=== PATIENT | female | born 1980 | race Hispanic/Latino ===

== ENCOUNTER 2019-10-06 07:08 | Day surgery (SDC) | payer MEDICAID ==
[~2019-10-06] VITALS: Ht 160 cm; Wt 71.2 kg
[~2019-10-06 07:08] MED LIST: PLEC3TAB PO; SODIUM CHLORIDE 0.9% 1000ML 1,000 ML IV ONE
[2019-10-06 08:02] VITALS: BP 113/76
[2019-10-06] MEDS ORDERED: MIDAZOLAM HCL 1 MG/ML 2ML VIAL ONE (09:21)
[2019-10-06] MEDS ORDERED: PROPOFOL 10 MG/ML 20ML VIAL IV ONE ×2 (09:25→09:26)
[2019-10-06 09:34] VITALS: BP 100/59
[2019-10-06 09:42] VITALS: BP 108/66
[2019-10-06 09:47] VITALS: BP 103/65
[2019-10-06 09:52] VITALS: BP 107/75
== END 2019-10-06 10:10 | disposition home or self-care (01) ==
LOC: DAH 07:08 → ENDO 07:08
PROVIDERS: ATTEND Internal Medicine
DX: K59.04 Chronic idiopathic constipation (principal); K64.0 First degree hemorrhoids; K92.1 Melena; J45.909 Unspecified asthma, uncomplicated; K21.9 Gastro-esophageal reflux disease without esophagitis; M19.90 Unspecified osteoarthritis, unspecified site; Z88.8 Allergy status to other drugs, medicaments and biological substances; Z79.899 Other long term (current) drug therapy; Z72.89 Other problems related to lifestyle; Z82.49 Family history of ischemic heart disease and other diseases of the circulatory system; Z83.3 Family history of diabetes mellitus; Z82.5 Family history of asthma and other chronic lower respiratory diseases
CPT/HCPCS: 36415; 45380; 84703; 88305; A4215; A4221; A4222; A4223; A4606; A4620; A4663; J2250; J2704 ×2; J7030

== ENCOUNTER 2019-10-11 12:08 | Emergency (ER) | payer MEDICAID ==
[~2019-10-11 12:08] MED LIST changes: -SODIUM CHLORIDE 0.9% 1000ML 1,000 ML IV ONE
[2019-10-11 13:41] LABS: APPEARANCE,URINE Cloudy (CLEAR); BILIRUBIN,URINE Negative (NEGATIVE); COLOR,URINE Yellow (YELLOW); GLUCOSE, URINE (UA) Negative (NEGATIVE); KETONES,URINE Negative (NEGATIVE); LEUKOCYTE ESTERASE ,URINE Negative (NEGATIVE); NITRATE,URINE Negative (NEGATIVE); OCCULT BLOOD,URINE Negative (NEGATIVE); PROTEIN,URINE Negative (NEGATIVE)
[2019-10-11 13:56] LABS: BACTERIA,URINE Few /HPF (None Seen); RBC,URINE 0-1 /HPF (0-1); WBC,URINE 0-1 /HPF (0-1)
[2019-10-11 13:57] LABS: MUCUS,URINE Few LPF (None Seen); TRANSITIONAL EPI CELLS,URINE Few /HPF (None Seen)
[2019-10-11] MEDS ORDERED: CEFTRIAXONE SODIUM 500 MG VIAL ONE (15:44)
[2019-10-11] MEDS ORDERED: AZITHROMYCIN 250 MG TABLET PO ONE (15:45)
[2019-10-11] MEDS ORDERED: LIDOCAINE HCL-MPF 1% 2ML VIAL ONE (15:45)
== END 2019-10-11 16:06 | disposition home or self-care (01) ==
LOC: EDH 12:08
DX: N76.0 Acute vaginitis (principal); Z20.2 Contact with and (suspected) exposure to infections with a predominantly sexual mode of transmission; Z88.1 Allergy status to other antibiotic agents
CPT/HCPCS: 81001; 87486 ×2; 87797 ×2; 96372; 99284; J0696; J3490

== ENCOUNTER 2021-04-05 09:40 | Emergency (ER) | payer MEDICAID ==
[~2021-04-05 09:40] MED LIST changes: -PLEC3TAB PO; +PLEC3TAB2 PO
[2021-04-05 09:57] LABS: BASOPHILS % (AUTO) 0.7 % (0.0-5.0); EOSINOPHILS % (AUTO) 1.8 % (0.0-8.0); HEMATOCRIT 40.3 % (36-48); LYMPHOCYTES % (AUTO) 30.1 % (21.0-51.0); MEAN CORPUSCULAR HEMOGLOBIN 30.3 pg (27.0-33.0); MEAN CORPUSCULAR HGB CONC 33.3 g/dL (32.0-36.0); MEAN CORPUSCULAR VOLUME 91.2 fL (79-99); MONOCYTES % (AUTO) 6.1 % (3.0-13.0); PLATELET COUNT (AUTO) 265 K/uL (130-400); RED BLOOD CELL COUNT(AUTO) 4.42 MIL/uL (4.00-5.50); RED CELL DISTRIBUTION WIDTH 12.5 % (11.0-15.5)
[2021-04-05 10:02] LABS: APPEARANCE,URINE CLEAR (CLEAR); BILIRUBIN,URINE NEGATIVE (NEGATIVE); COLOR,URINE YELLOW (YELLOW); GLUCOSE, URINE (UA) NEGATIVE (NEGATIVE); KETONES,URINE NEGATIVE (NEGATIVE); LEUKOCYTE ESTERASE ,URINE NEGATIVE (NEGATIVE); NITRATE,URINE NEGATIVE (NEGATIVE); OCCULT BLOOD,URINE NEGATIVE (NEGATIVE); PH,URINE 5.5 (5.0-8.0); PROTEIN,URINE NEGATIVE (NEGATIVE); UROBILINOGEN,URINE 0.2 mg/dL (0.2-1.0)
[2021-04-05 10:10] LABS: ALBUMIN 3.9 g/dL (3.5-5.0); BILIRUBIN,TOTAL 0.4 mg/dL (0.2-1.0); CREATININE 0.6 mg/dL (0.5-1.5); POTASSIUM 4.2 mmol/L (3.5-5.1); TOTAL PROTEIN, SERUM 7.3 g/dL (6.0-8.3)
== END 2021-04-05 13:32 | disposition home or self-care (01) ==
LOC: EDH 09:40
DX: N76.0 Acute vaginitis (principal); Z88.1 Allergy status to other antibiotic agents; Z88.8 Allergy status to other drugs, medicaments and biological substances
CPT/HCPCS: 36415; 76856; 80053; 81003; 85025

== ENCOUNTER 2022-03-14 09:30 | Emergency (ER) | payer MEDICAID ==
[~2022-03-14] VITALS: Ht 160 cm; Wt 66.7 kg
[2022-03-14 09:36] VITALS: BP 104/73
[2022-03-14] MEDS ORDERED: TETANUS/DIPHTHERIA TOXOID [ADULT] 0.5 ML VIAL IM ONE (12:11)
[2022-03-14] MEDS ORDERED: BACI30OI6 TP (12:15)
[2022-03-14] MEDS ORDERED: TETANUS/DIPHTHERIA TOXOID [ADULT] 0.5 ML VIAL IM SCH (12:30)
[2022-03-14] MEDS ORDERED: BACITRACIN 28.4 GM OINT TP SCH (12:30)
== END 2022-03-14 12:20 | disposition home or self-care (01) ==
LOC: EDH 09:30
DX: S61.236A Puncture wound without foreign body of right little finger without damage to nail, initial encounter (principal); J45.909 Unspecified asthma, uncomplicated; Z88.2 Allergy status to sulfonamides; Z88.1 Allergy status to other antibiotic agents; Z98.890 Other specified postprocedural states; W26.0XXA Contact with knife, initial encounter; Y93.89 Activity, other specified; Y92.89 Other specified places as the place of occurrence of the external cause; Y99.8 Other external cause status
CPT/HCPCS: 90471; 90714

== ENCOUNTER 2023-01-15 14:20 | Emergency (ER) | payer MEDICAID ==
[~2023-01-15] VITALS: Ht 160 cm; Wt 68.0 kg
[~2023-01-15 14:20] MED LIST changes: +BACI30OI6 TP
[2023-01-15 14:25] VITALS: BP 132/86
[2023-01-15] MEDS ORDERED: TETANUS/DIPHTHERIA TOXOID [ADULT] 0.5 ML VIAL IM ONE (15:00)
[2023-01-15] MEDS ORDERED: LEVO-70 PO (15:08)
== END 2023-01-15 15:25 | disposition home or self-care (01) ==
LOC: EDH 14:20
DX: S91.332A Puncture wound without foreign body, left foot, initial encounter (principal); Z88.2 Allergy status to sulfonamides; Z88.8 Allergy status to other drugs, medicaments and biological substances; W45.0XXA Nail entering through skin, initial encounter; Y93.89 Activity, other specified; Y92.89 Other specified places as the place of occurrence of the external cause; Y99.8 Other external cause status
CPT/HCPCS: 73630; 90471; 90714

== ENCOUNTER 2023-02-10 17:48 | Emergency (ER) | payer MEDICAID ==
[~2023-02-10] VITALS: Ht 160 cm; Wt 68.9 kg
[~2023-02-10 17:48] MED LIST changes: +LEVO-70 PO
[2023-02-10 18:10] LABS: APPEARANCE,URINE CLEAR (CLEAR); BILIRUBIN,URINE NEGATIVE (NEGATIVE); COLOR,URINE DARK-YELLOW (YELLOW); GLUCOSE, URINE (UA) NEGATIVE (NEGATIVE); KETONES,URINE NEGATIVE (NEGATIVE); LEUKOCYTE ESTERASE ,URINE NEGATIVE Leu/uL (NEGATIVE); NITRATE,URINE 1+ (NEGATIVE); OCCULT BLOOD,URINE NEGATIVE (NEGATIVE); PH,URINE 5.5 (5.0-8.0); PROTEIN,URINE 10 mg/dL (NEGATIVE)
[2023-02-10 18:15] LABS: MUCUS,URINE RARE LPF (None Seen); RBC,URINE 0-1 /HPF (0-1); SQUAMOUS EPITHELIAL CELL,UR RARE /HPF (0-2); WBC,URINE 0-1 /HPF (0-1)
[2023-02-10 19:23] VITALS: BP 125/63
== END 2023-02-10 20:08 | disposition home or self-care (01) ==
LOC: EDH 17:48
DX: N39.8 Other specified disorders of urinary system (principal); T36.8X5A Adverse effect of other systemic antibiotics, initial encounter; Y92.89 Other specified places as the place of occurrence of the external cause
CPT/HCPCS: 81001; 87088

== ENCOUNTER 2024-10-07 16:26 | Emergency (ER) | payer MEDICAID ==
[~2024-10-07] VITALS: Ht 160 cm; Wt 70.8 kg
--- NOTE | 2024-10-07 17:56 | ERN ---
ED Note History of Present Illness Stated Complaint: BOIL ON BOTH BUTT CHEEKS Chief Complaint: Abscess Time Seen by MD: 17:04 Time Seen by Midlevel: 17:04 Dictation: The patient is a 44 year old female with history of asthma who presents to the emergency with complaints of wound to buttocks every onset Saturday. Patient reports he went to PCP and clot in injection and a prescribed an antibiotic but has not picked it up. Patient denies any fevers. Allergies: Coded Allergies: sulfamethoxazole (Unverified Allergy, Unknown, HIVES, 08/28/15) trimethoprim (Unverified Allergy, Unknown, HIVES, 08/28/15) Home Meds Active Scripts Levofloxacin (Levofloxacin) 500 Mg Tablet, 500 MG PO DAILY for 7 Days, #7 TAB Prov:CORINNE GAITAN BREAD STACKER 01/15/23 Bacitracin (Bacitracin) 28.4 Gm Oint...g., 28.4 GM TP TID, #1 TUBE Prov:JOHN ZHENG KNITTING MACHINE OPERATOR HELPER 03/14/22 Reported Medications Plecanatide (Trulance) 3 Mg Tablet, 3 MG PO DAILY, TAB 10/05/19 Past Medical History Past Medical History: No Pertinent History Surgical History: Other Surgical History Other: UTERINE ABLASION. History: Not Applicable RN Note Reviewed/Agreed w/PFSH: Yes Review of System Dictation Constitutional: Negative for fever,chills, and weight loss Eyes: Negative for injury, pain,redness, and discharge ENT: Negative for injury,pain or swelling Cardiovascular: Negative for chest pain, palpitations, and edema Respiratory: Negative for shortness of breath, cough, and wheezing, Abdomen/GI: Negative for abdominal pain, nausea, vomiting, diarrhea, and constipation Back: Negative for injury and pain : Negative for injury, bleeding and discharge MS/Extremity: Negative for injury and deformity Skin: Negative for rash, and discoloration positive for wound to buttocks Neuro: Negative for headache, weakness, numbness, tingling, and seizure Psych: Negative for suicide ideation, homicidal ideation, and hallucinations Initial Vital Sign VS Vital Signs Date Time Temp Pulse Resp B/P (MAP) Pulse Ox O2 Delivery O2 Flow Rate FiO2 10/07/24 17:31 98.1 74 18 137/91 99 10/07/24 18:43 Room Air* 0 21 Physical Exam Dictation General: awake, alert, NAD Head/Face: Normocephalic, atraumatic Eyes: PERRL, EOMI, vision at baseline ENT: oral cavity clear, TMs clear, no signs of infection Neck: Trachea midline, supple, no nuchal rigidity Cardiovascular: RRR, normal S1/S2, No MRGs, no JVD Respiratory: CTAB, no respiratory distress, No rales or wheezes Abdomen: Soft, non-tender, non-distended, normal bowel sounds, no guarding or rebound. Skin: Warm, dry, normal turgor, no rash. Small erythema to upper buttocks, small induration less than 2cm., no drainage MS/Extremity: Pulses equal, no cyanosis, neurovascular intact, FROM Neuro: COAx4, GCS 15, strength 5/5, CN 2-12 intact, normal cerebellar exam, normal gait, Psych: Normal behavior, mood, and affect normal Results (Laboratory/Radiology) Labs Reviewed?: Yes ED Course ED Course Medical Decision Making MDM MDM: The patient is a 44 year old female with history of asthma who presents to the emergency with complaints of wound to buttocks every onset Saturday. Patient reports he went to PCP and clot in injection and a prescribed an antibiotic but has not picked it up. Patient denies any fevers. Patient already prescribed with clindamycin. Patient reports she is going to machine operator picker prescription after being discharged from hospital. Patient nontoxic, afebrile we will be discharged to start antibiotics for cellulitis Differential diagnosis: Sepsis, cellulitis, abscess Rationale: Tests considered and ordered secondary to shared decision making include: Previous outside records reviewed: Old ER visits. Medications-Per medication reconciliation Need for hospitalization: Patient does not meet criteria for hospitalization. There are no social concerns with this patient. DX & DISP Disposition: Discharge Departure Impression: Primary Impression: Cellulitis of buttock, left Additional Impression: Cellulitis of buttock, right Condition: Stable Additional Instructions: Please take your antibiotics prescribed by your primary doctor. Please follow up with pcp in 1-2 days if symptoms worsen please return to ER. Referrals: ISHAAN SANTIAGO MD (PCP) Time of Disposition: 18:27 I have reviewed the case, and I agree with, Diagnosis and Plan I performed this substantive portion of this visit. I have reviewed and pers onally made and approve the management plan that is documented in the note by myself or the ELIGIO. I acknowledge full responsibility for the patient's management plan. LYLA MCCOY Oct 07, 2024 17:56 ANGUS PACK MD Oct 14, 2024 14:27
[2024-10-07 18:43] VITALS: BP 137/91; PULSE 74; RESP 18; TEMP 98.1; O2SAT 99
== END 2024-10-07 18:47 | disposition home or self-care (01) ==
LOC: EDH 16:26
DX: L03.317 Cellulitis of buttock (principal); Z79.899 Other long term (current) drug therapy; Z88.1 Allergy status to other antibiotic agents; Z88.2 Allergy status to sulfonamides; Z98.890 Other specified postprocedural states
CPT/HCPCS: 99281

== ENCOUNTER 2025-09-21 04:29 | Emergency (ER) | payer MEDICAID ==
[~2025-09-21] VITALS: Ht 160 cm; Wt 69.9 kg
[2025-09-21] MEDS ORDERED: KETO5DRO82 OP (05:18)
--- NOTE | 2025-09-21 05:19 | ERN ---
General Chief Complaint: Eye Problems Stated Complaint: C/O IRRITATION TO EYES Time Seen by MD: 04:50 Source: patient History of Present Illness Initial Comments 45-year-old female no past medical history here for evaluation of bilateral eye pain. Patient states that she woke up from her sleep with green like substances in her eye and was having trouble opening her eye secondary to pain. She denies any direct trauma to the eye. Denies any visual changes. No fever no cough no shortness a breath pain no nausea vomiting diarrhea. No abdominal pain. No palpitation or chest pain. She has been using water to flush out her eyes with minimal relief of symptoms Allergies: Coded Allergies: sulfamethoxazole (Unverified Allergy, Unknown, HIVES, 08/28/15) trimethoprim (Unverified Allergy, Unknown, HIVES, 08/28/15) Home Meds Active Scripts Ketorolac Tromethamine (Ketorolac Tromethamine) 0.4 % Drops, 1 DROP OP QID for pain for 7 Days, #5 ML 0 Refills Prov:MARISA SIMPSON MD 09/21/25 Levofloxacin (Levofloxacin) 500 Mg Tablet, 500 MG PO DAILY for 7 Days, #7 TAB Prov:CORINNE GAITAN DRIVER GUIDE 01/15/23 Bacitracin (Bacitracin) 28.4 Gm Oint...g., 28.4 GM TP TID, #1 TUBE Prov:JOHN ZHENG REFUGE WORKER 03/14/22 Reported Medications Plecanatide (Trulance) 3 Mg Tablet, 3 MG PO DAILY, TAB 10/05/19 Past Medical History Past Medical History: No Pertinent History Past Surgical History: Other Surgical History Other: UTERINE ABLASION. Female( History) History: Not Applicable EENTM: (+) eye pain, (+) tearing; (-) blurred vision Physical Exam General Appearance: (+) no apparent distress Orientation: (+) oriented x 3 Eye: bilateral eye normal inspection, bilateral eye PERRL, bilateral eye EOMI Ear, Nose, Throat: (+) hearing grossly normal, (+) normal ENT inspection, (+) moist mucous membraine Neck: (+) normal inspection Respiratory: (+) chest non-tender, (+) lungs clear, (+) well ventilated Heart: (+) regular; (-) murmur Gastrointestinal: (+) soft, (+) non-tender MDM 45-year-old female here for evaluation of bilateral eye pain. High likelihood there might be a corneal abrasion however slit-lamp with Wood's lamp shows minimal it uptake. Tetracaine improved the pain. We will discharge home on ketorolac eyedrops ED Course Orders Procedure Category Date Status Time Tetracaine Hcl PHA 09/21/25 Complete (Pontocaine 0.5% 05:00 Fluorescein Sodium PHA 09/21/25 Complete (Wfjke-Z-Qvqso At) 05:00 Tetracaine Hcl PHA 09/21/25 Complete (Pontocaine 0.5% 04:56 Fluorescein Sodium PHA 09/21/25 Complete (Plyrw-H-Skqrb At) 04:56 Current Medications Medications (Trade) Dose Ordered Sig/Chan Route PRN Reason Start Time Stop Time Status Last Admin Dose Admin Fluorescein Sodium (Nfzux-H-Dflbu At) 1 strip STK-MED ONCE .ROUTE 09/21/25 04:56 09/21/25 04:57 DC Fluorescein Sodium (Szxqk-R-Zjjco At) 2 strip ONCE ONCE OP 09/21/25 05:00 09/21/25 05:14 DC Tetracaine HCl (Pontocaine 0.5% Ophth Soln) 1 OR 2 DROPS ONCE ONCE OU 09/21/25 05:00 09/21/25 05:14 DC Tetracaine HCl (Pontocaine 0.5% Ophth Soln) 20 drop STK-MED ONCE .ROUTE 09/21/25 04:56 09/21/25 04:56 DC Vital Signs Date Time Temp Pulse Resp B/P (MAP) Pulse Ox O2 Delivery O2 Flow Rate FiO2 09/21/25 04:31 97.2 67 20 115/75 98 Room Air DX & DISP Disposition: Discharge Departure Impression: Primary Impression: Eye pain Additional Impression: Corneal abrasion Condition: Stable Scripts Erythromycin Base (Erythromycin) 5 Mg/Gram (0.5 %) Oint...g. 1 APPL OP QID for 3 Days, #7 GM 0 Refills apply 1 cm ribbon into the lower conjunctival sac Prov: MARISA SIMPSON MD 09/21/25 Ketorolac Tromethamine (Ketorolac Tromethamine) 0.4 % Drops 1 DROP OP QID for pain for 7 Days, #5 ML 0 Refills Prov: MARISA SIMPSON MD 09/21/25 Referrals: ISHAAN SANTIAGO MD (PCP) MARISA SIMPSON MD Sep 21, 2025 05:19
[2025-09-21] MEDS ORDERED: ERYT1OIN7 OP (05:24)
[2025-09-21] MEDS: TETRACAINE HCL 0.5% 4 ML OPHTH SOLN OU ONE (05:28)
[2025-09-21] MEDS: FLUORESCEIN SODIUM 1 STRIP STRIP OP ONE (05:28)
[2025-09-21] MEDS: TETRACAINE HCL 0.5% 4 ML OPHTH SOLN ONE (05:29)
[2025-09-21] MEDS: FLUORESCEIN SODIUM 1 STRIP STRIP ONE (05:29)
[2025-09-21 05:38] VITALS: BP 104/61; PULSE 59; RESP 18; TEMP 98.2; O2SAT 100
--- NOTE | 2025-09-21 09:35 | NUR ---
I ENTERED PT CHART D/T QUESTION FROM PHARMACY ON SWITCHING OVER MEDICDATION. OK'D BY DR PACK ON TORADOL EYE DROPS FROM 0.4% TO 0.5%
== END 2025-09-21 05:42 | disposition home or self-care (01) ==
LOC: EDH 04:29
DX: S05.02XA Injury of conjunctiva and corneal abrasion without foreign body, left eye, initial encounter (principal); S05.01XA Injury of conjunctiva and corneal abrasion without foreign body, right eye, initial encounter; Z88.1 Allergy status to other antibiotic agents; Z88.2 Allergy status to sulfonamides; X58.XXXA Exposure to other specified factors, initial encounter; Y93.89 Activity, other specified; Y92.89 Other specified places as the place of occurrence of the external cause; Y99.8 Other external cause status
CPT/HCPCS: 99283